=== PATIENT | female | born 1995 | race Caucasian/White ===

== ENCOUNTER 2020-10-02 13:49 | Inpatient (IN) | payer MEDICAID, OTHER ==
[~2020-10-02] VITALS: Ht 165.1 cm; Wt 90.5 kg
[~2020-10-02 13:49] MED LIST: DOCU-131 PO; IBUP-1222 PO; OXYC1TAB14 PO
[2020-10-02] MEDS ORDERED: ONDANSETRON ODT 8 MG ONE (14:11)
--- NOTE | 2020-10-02 14:25 | NUR ---
MEDICATED NOTED ON JUN FOR MULTIPLE EPISODES OF VOMITING WHILE IN TRIAGE. TO LOBBY AWAITING ROOM ASSIGNMENT
[2020-10-02] MEDS ORDERED: ONDANSETRON ODT 8 MG PO ONE (14:30)
[2020-10-02] MEDS ORDERED: ONDANSETRON 2MG/ML, 2ML IVPush ONE (14:30)
[2020-10-02] MEDS ORDERED: SODIUM CHLORIDE FLUSH 10ML SYR IVF ONE ×2 (14:30→15:30)
[2020-10-02] MEDS ORDERED: METOCLOPRAMIDE 5 MG/ML, 2ML IVPush ONE (14:30)
[2020-10-02] MEDS ORDERED: FAMOTIDINE 20 MG/2 ML IVPush ONE (14:30)
[2020-10-02] MEDS ORDERED: SODIUM CHLORIDE 0.9% 1,000ML IVBOLUS ONE ×2 (14:30→15:30)
[2020-10-02 14:34] LABS: MD YES; MEAN CORPUSCULAR HEMOGLOBIN 33.6 pg (27.0-34.8); MEAN CORPUSCULAR HGB CONC 34.7 g/dL (32.4-35.8); MEAN PLATELET VOLUME 7.8 fL (7.4-10.4); PLATELET COUNT 445 x10^3/uL (130-400); RED BLOOD COUNT 4.26 x10^6/uL (3.82-5.3); RED CELL DISTRIBUTION WIDTH 12.8 % (9.6-15.2)
[2020-10-02 14:45] LABS: ALANINE AMINOTRANSFERASE 35 U/L (12-78); ALBUMIN 4.2 g/dL (3.4-5.0); ANION GAP 10 mmol/L (5-15); CALCIUM 9.1 mg/dL (8.5-10.1); CHLORIDE 106 mmol/L (98-107); CREATININE 0.72 mg/dL (0.55-1.02)
[2020-10-02 14:51] LABS: ALKALINE PHOSPHATASE 77 U/L (45-117); BILIRUBIN,TOTAL 0.7 mg/dL (0.2-1.0); TOTAL PROTEIN 8.6 g/dL (6.4-8.2)
[2020-10-02 14:59] LABS: BAND#(MANUAL) 4.68 x10^3/uL; BANDS%(MANUAL) 17 % (0-7); LYMPH#(MANUAL) 0.83 x10^3/uL (1-3.4); LYMPHS% (MANUAL) 3 % (22-44); MONOS#(MANUAL) 0.55 x10^3/uL (0.3-2.7); MONOS% (MANUAL) 2 % (2-9); SEG#(MANUAL) 21.45 x10^3/uL (1.8-6.8); SEGS% (MANUAL) 78 % (42-75)
[2020-10-02 15:01] LABS: <RBC MORPHOLOGY> NORMAL
[2020-10-02 15:02] LABS: <PLATELET ESTIMATE> INCREASED; <PLT MORPHOLOGY> NORMAL PLT MORPH; PMNS WITH VACUOLES 1+
--- NOTE | 2020-10-02 15:07 | NUR ---
ROUTE AIDE: CALLED PATIENT NO ANSWER
--- NOTE | 2020-10-02 15:12 | NUR ---
DYE OPERATOR: CALLED PT NO ANSWER
[2020-10-02] MEDS ORDERED: METOCLOPRAMIDE 5 MG/ML, 2ML ONE (15:22)
[2020-10-02] MEDS ORDERED: HYDROmorphone 1 MG/ML, 1ML INJ ONE (15:23)
[2020-10-02] MEDS ORDERED: FAMOTIDINE 20 MG/2 ML ONE (15:23)
[2020-10-02] MEDS ORDERED: DIPHENHYDRAMINE 50 MG/ML, 1ML IVPush ONE ×2 (15:30→22:00)
[2020-10-02] MEDS ORDERED: HYDROmorphone 1 MG/ML, 1ML INJ IV ONE (15:30)
[2020-10-02] MEDS ORDERED: DIPHENHYDRAMINE 50 MG/ML, 1ML ONE (15:44)
[2020-10-02 15:59] LABS: MICROSCOPIC AUTO
[2020-10-02] MEDS ORDERED: OMNIPAQUE 350 MG/ML, 100ML BOTTLE ONE (16:15)
--- NOTE | 2020-10-02 16:15 | NUR ---
PT TO CT
--- NOTE | 2020-10-02 17:18 | NUR ---
TASK RN: PER ERMD LAW, PT NO LONGER NPO. [facility] LAW PROVIDED PT WITH ICE WATER. PRIMARY RN NOTIFIED.
--- NOTE | 2020-10-02 17:37 | NUR ---
PT REPORTS PAIN IN ABD IS BETTER "MY THROAT HURTS". PT REQUESTING ICE WATER.
[2020-10-02] MEDS ORDERED: CEFTRIAXONE 1,000 MG in DEXTROSE 5% 50 ML IVPB ONE (18:00)
[2020-10-02] MEDS ORDERED: LORazepam 2 MG/ML, 1ML IVPush PRN (19:00)
--- NOTE | 2020-10-02 19:03 | NUR ---
[facility] AT BEDSIDE
--- NOTE | 2020-10-02 19:41 | NUR ---
REPORT GIVEN TO PRUDENCIO HINES
[2020-10-02 20:49] VITALS: BP 125/82
[2020-10-02] MEDS: morphine SULFATE 10 MG/ML, 1ML IVPush PRN (22:16)
[2020-10-02] MEDS: SODIUM CHLORIDE 0.9% 1,000 ML IV SCH (22:17)
[2020-10-02] MEDS: PIPERACILLIN/TAZO 3.375 GM in DEXTROSE 5% 50 ML IVPB SCH (22:17)
[2020-10-02] MEDS: ENOXAPARIN 40 MG/0.4 ML SQ SCH (22:28)
[2020-10-02] MEDS: POTASSIUM CHLORIDE 20 MEQ, MAGNESIUM SULFATE 1 GM, FOLIC ACID 1 MG, THIAMINE 200 MG, MV... IV SCH (23:22)
[2020-10-03] MEDS: morphine SULFATE 10 MG/ML, 1ML IVPush PRN ×2 (02:09→06:33)
[2020-10-03 02:12] VITALS: BP 109/74
[2020-10-03] MEDS: PIPERACILLIN/TAZO 3.375 GM in DEXTROSE 5% 50 ML IVPB SCH ×3 (04:38→20:46)
[2020-10-03 07:14] VITALS: BP 124/84
[2020-10-03 07:55] LABS: MEAN CORPUSCULAR HEMOGLOBIN 33.3 pg (27.0-34.8); MEAN PLATELET VOLUME 7.9 fL (7.4-10.4); PLATELET COUNT 343 x10^3/uL (130-400); RED BLOOD COUNT 3.83 x10^6/uL (3.82-5.3)
[2020-10-03 07:58] LABS: MD YES
[2020-10-03] MEDS: HYDROmorphone 2 MG/ML, 1ML IVPush PRN ×3 (08:37→23:28)
[2020-10-03] MEDS: SODIUM CHLORIDE 0.9% 1,000 ML IV SCH ×2 (08:38→17:04)
[2020-10-03] MEDS: KETOROLAC 30 MG/1 ML IVPush SCH ×3 (08:45→20:46)
[2020-10-03] MEDS ORDERED: OMNIPAQUE 350 MG/ML, 100ML BOTTLE ONE (09:00)
[2020-10-03 09:06] LABS: LYMPH#(MANUAL) 1.71 x10^3/uL (1-3.4); LYMPHS% (MANUAL) 6 % (22-44)
[2020-10-03 09:07] LABS: <PLATELET ESTIMATE> ADEQUATE; <PLT MORPHOLOGY> NORMAL PLT MORPH; <RBC MORPHOLOGY> NORMAL; BAND#(MANUAL) 7.41 x10^3/uL; BANDS%(MANUAL) 26 % (0-7); MONOS#(MANUAL) 2.85 x10^3/uL (0.3-2.7); MONOS% (MANUAL) 10 % (2-9); PMNS WITH VACUOLES 1+; SEG#(MANUAL) 16.53 x10^3/uL (1.8-6.8); SEGS% (MANUAL) 58 % (42-75)
[2020-10-03] MEDS ORDERED: DEXAMETHASONE 4 MG/ML, 5ML IVPush ONE (10:00)
[2020-10-03 14:22] VITALS: BP 103/72
[2020-10-03 19:49] VITALS: BP 123/83
[2020-10-03] MEDS: ENOXAPARIN 40 MG/0.4 ML SQ SCH (20:47)
[2020-10-03] MEDS: POTASSIUM CHLORIDE 20 MEQ, MAGNESIUM SULFATE 1 GM, FOLIC ACID 1 MG, THIAMINE 200 MG, MV... IV SCH (23:27)
[2020-10-04 00:16] VITALS: BP 111/68
[2020-10-04] MEDS: KETOROLAC 30 MG/1 ML IVPush SCH ×4 (03:04→22:24)
[2020-10-04] MEDS: PIPERACILLIN/TAZO 3.375 GM in DEXTROSE 5% 50 ML IVPB SCH (04:43)
[2020-10-04] MEDS: HYDROmorphone 2 MG/ML, 1ML IVPush PRN ×4 (04:49→19:56)
[2020-10-04 05:20] LABS: MEAN CORPUSCULAR HEMOGLOBIN 33.8 pg (27.0-34.8); MEAN CORPUSCULAR HGB CONC 34.5 g/dL (32.4-35.8); MEAN PLATELET VOLUME 8.4 fL (7.4-10.4); PLATELET COUNT 342 x10^3/uL (130-400); RED BLOOD COUNT 3.78 x10^6/uL (3.82-5.3); RED CELL DISTRIBUTION WIDTH 12.8 % (9.6-15.2)
[2020-10-04 05:26] LABS: CHLORIDE 108 mmol/L (98-107)
[2020-10-04 05:30] LABS: ANION GAP 4 mmol/L (5-15); CALCIUM 8.5 mg/dL (8.5-10.1); CREATININE 0.51 mg/dL (0.55-1.02)
[2020-10-04 06:05] LABS: MD YES
[2020-10-04 06:06] LABS: <PLATELET ESTIMATE> ADEQUATE; <PLT MORPHOLOGY> NORMAL PLT MORPH; <RBC MORPHOLOGY> NORMAL; BAND#(MANUAL) 1.72 x10^3/uL; BANDS%(MANUAL) 8 % (0-7); LYMPH#(MANUAL) 0.43 x10^3/uL (1-3.4); LYMPHS% (MANUAL) 2 % (22-44); MONOS#(MANUAL) 1.51 x10^3/uL (0.3-2.7); MONOS% (MANUAL) 7 % (2-9); SEG#(MANUAL) 17.85 x10^3/uL (1.8-6.8); SEGS% (MANUAL) 83 % (42-75)
[2020-10-04 07:04] VITALS: BP 106/68
[2020-10-04] MEDS: SODIUM CHLORIDE 0.9% 1,000 ML IV SCH (07:43)
[2020-10-04] MEDS ORDERED: CEFTRIAXONE 1,000 MG in DEXTROSE 5% 50 ML IVPB SCH (10:00)
[2020-10-04 15:37] VITALS: BP 115/72
[2020-10-04 19:14] VITALS: BP 134/92
[2020-10-04] MEDS: ENOXAPARIN 40 MG/0.4 ML SQ SCH (19:57)
[2020-10-05 00:10] VITALS: BP 107/64
[2020-10-05] MEDS: POTASSIUM CHLORIDE 20 MEQ, MAGNESIUM SULFATE 1 GM, FOLIC ACID 1 MG, THIAMINE 200 MG, MV... IV SCH ×2 (02:06→02:07)
[2020-10-05] MEDS: HYDROmorphone 2 MG/ML, 1ML IVPush PRN ×2 (02:07→07:16)
[2020-10-05] MEDS: KETOROLAC 30 MG/1 ML IVPush SCH (04:21)
[2020-10-05 04:42] LABS: BASOPHILS % (AUTO) 0 % (0-1); EOSINOPHILS % (AUTO) 1 % (1-7); LYMPHOCYTES % (AUTO) 18 % (22-44); MEAN CORPUSCULAR HEMOGLOBIN 33.3 pg (27.0-34.8); MEAN CORPUSCULAR HGB CONC 33.8 g/dL (32.4-35.8); MEAN PLATELET VOLUME 8.2 fL (7.4-10.4); MONOCYTES % (AUTO) 7 % (2-9); NEUTROPHILS % (AUTO) 73 % (42-75); PLATELET COUNT 341 x10^3/uL (130-400); RED BLOOD COUNT 3.59 x10^6/uL (3.82-5.3); RED CELL DISTRIBUTION WIDTH 13.2 % (9.6-15.2)
[2020-10-05 04:45] LABS: MD NO
[2020-10-05 08:38] VITALS: BP 125/84
[2020-10-05] MEDS ORDERED: AMOX1TAB64 PO (09:24)
[2020-10-05] MEDS ORDERED: OXYC1TAB14 PO (09:24)
== END 2020-10-05 10:40 | disposition home or self-care (01) | DRG 872 ==
LOC: ED 16:41 → EDIP 18:29 → 3N 20:11 → DCLOUNGE 10-05 10:30
PROVIDERS: ADMIT Internal Medicine; ATTEND Hospitalist
DX: A40.9 Streptococcal sepsis, unspecified (principal); F10.10 Alcohol abuse, uncomplicated; J02.0 Streptococcal pharyngitis; R60.9 Edema, unspecified; R53.81 Other malaise; Z20.822 Contact with and (suspected) exposure to COVID-19
CPT/HCPCS: 36415; 84145; 87806; 96361; 96374; 96375; 99285; J7121; 70491; 71045; 74177; 76700; 80048; 80053; 81001; 83605; 83690; 84703; 85025; 86308; 87040; 87081; 87086; 87147; 87880; G0378; J0696; J1100; J1170; J1650; J1885; J2543; J3411; J3475; J3480; Q0162; Q9967; U0005; G0475; J1200; J2270; J2765; J7030; U0003